=== PATIENT | female | born 1940 | race African-American/Black ===

== ENCOUNTER 2017-06-27 12:23 | Emergency (ER) | payer MEDICARE, OTHER ==
[~2017-06-27] VITALS: Ht 172.7 cm; Wt 89.0 kg
[~2017-06-27 12:23] MED LIST: ASPI-1159 PO; ATEN-42 PO; ATOR10TA PO; CYCL5TAB PO; POTA10TA11 PO; TRIA1TAB5 PO
[2017-06-27 15:11] VITALS: BP 136/100
[2017-06-27 15:55] LABS: BASOPHILS % 0.7 % (0.0-2.0); EOSINOPHILS % 2.2 % (0.0-5.0); HEMATOCRIT. 41.3 % (36.0-48.0); HEMOGLOBIN. 13.5 g/dL (12.0-16.0); LYMPHOCYTES % 17.5 % (20.0-50.0); MEAN CORPUSCULAR HEMOGLOBIN 29.4 pg (28.0-32.0); MEAN CORPUSCULAR VOLUME 89.7 fL (81.0-99.0); MEAN PLATELET VOLUME 9.7 fl (7.4-10.4); MONOCYTES % 4.1 % (2.0-8.0); NEUTROPHILS % 75.5 % (40.0-76.0); PLATELET 272 x1000/uL (130-400); RED CELL DISTRIBUTION WIDTH 14.3 % (11.6-14.6)
[2017-06-27 16:12] LABS: CARBON DIOXIDE 29 mEq/L (21-32); CHLORIDE 103 mEq/L (98-107); TROPONIN I < 0.02 ng/mL (0.00-0.04)
== END 2017-06-27 17:27 | disposition home or self-care (01) ==
LOC: ER 12:23
DX: R42 Dizziness and giddiness (principal); R53.1 Weakness; D32.9 Benign neoplasm of meninges, unspecified; I10 Essential (primary) hypertension; M79.7 Fibromyalgia; Z79.82 Long term (current) use of aspirin; Z90.49 Acquired absence of other specified parts of digestive tract
CPT/HCPCS: 36415; 70450; 71010; 80053; 82962; 83880; 84443; 84484; 85025; 85651; 93005; 99285